=== PATIENT | male | born 1985 | race Caucasian/White ===

== ENCOUNTER 2023-09-07 17:10 | Emergency (ER) | payer OTHER, SELFPAY ==
[2023-09-07 17:37] VITALS: BP 121/87; PULSE 92; RESP 16; TEMP 36.6; O2SAT 98
[2023-09-07 17:58] VITALS: BP 121/87; PULSE 92; RESP 16; TEMP 36.6; O2SAT 98
--- NOTE | 2023-09-07 18:08 | ED.GENADULT ---
HPI - General Adult General Chief complaint: Upper Respiratory Infection Stated complaint: Right Ear Problem Source: patient, RN notes reviewed and old records reviewed Mode of arrival: ambulatory Limitations: no limitations History of Present Illness HPI narrative: 38-year-old male patient presents to [facility] with complaints of right ear being clogged. Patient states can not hear out of the ear. Patient states feels he pushed wax and ear were you trying to use a Q-tip. Patient denies pain or pressure in ear Related Data Home Medications Medication Instructions Recorded Confirmed buprenorphine 8 mg-naloxone 2 mg 1 film sublingual DAILY 09/07/23 09/07/23 sublingual film dextroamphetamine-amphetamine ER 30 mg PO DAILY 09/07/23 09/07/23 30 mg 24hr capsule,extend release diazepam 2 mg tablet 2 mg PO QID 09/07/23 09/07/23 doxepin 100 mg capsule 100 mg PO DAILY 09/07/23 09/07/23 gabapentin 600 mg tablet 600 mg PO QID 09/07/23 09/07/23 guanfacine 2 mg tablet 2 mg PO DAILY 09/07/23 09/07/23 paliperidone palmitate 234 mg/1.5 mg IM 09/07/23 mL intramuscular syringe (Invega Sustenna) Allergies Allergy/AdvReac Type Severity Reaction Status Date / Time mushroom Allergy Gastrointestinal Verified 09/07/23 17:43 Upset nut - unspecified Allergy Gastrointestinal Verified 09/07/23 17:42 Upset onion Allergy Gastrointestinal Verified 09/07/23 17:42 Upset Review of Systems Constitutional: Constitutional: Reports no additional constitutional complaints, Denies body ache(s), Denies chills, Denies fatigue, Denies fever(s) and Denies headache(s) Eyes: Eyes: Reports no additional eye complaints and Denies blurry vision ENT: Reports system reviewed and no additional complaints, except as documented, Denies vertigo, Denies dizziness, Denies ear discharge, Denies otalgia, Denies facial pain, Denies headache(s), Denies nasal congestion, Denies nasal discharge, Denies sinus pain, Denies sinus pressure, Denies sore throat and Reports other ( decreased hearing in right ear) Cardiovascular: Cardiovascular: Reports no additional cardiovascular complaints, Denies chest pain, Denies chest pain at rest, Denies rapid heart rate and Denies dyspnea Respiratory: Respiratory: Reports no additional respiratory complaints, Denies chest congestion, Denies cough, Denies pain on inspiration, Denies pain with cough and Denies dyspnea Gastrointestinal: Gastrointestinal: Denies abdominal pain, Denies diarrhea, Denies nausea and Denies vomiting Integumentary/Breasts: Skin/Breast: Denies rash Neurologic: Reports system reviewed and no additional complaints, except as documented, Denies vertigo, Denies dizziness and Denies headache(s) Endocrine: Endocrine: Denies fatigue PMFSH Comments At the time of my signature, I reviewed and agree with the nursing past medical, surgical, social, and family history. There is no relevant family history pertinent to the patient complaint. Exam Const: General: cooperative, healthy appearing, no acute distress and well nourished Nutritional Appearance: well nourished Orientation/consciousness: patient oriented x3 Limitations: no limitations HENMT: Head: normal to inspection and normocephalic Ears: external ears normal, TM's normal bilaterally, mastoids normal and Abnormal EAC present cerumen impaction bilateral Face/Nose/Sinus: normal facial exam Face and sinus: normal facial exam Mouth: Yes Normal oral and palatal mucosa present, Yes oropharynx normal and Yes moist mucous membranes Throat: tonsils normal, uvula midline and no uvular edema Eyes: General: appearance normal, both eyes and all related structures Sclera: sclerae normal Pupils: Equal, round and reactive pupils present Resp: Effort & Inspection: normal respiratory effort, able to speak in complete sentences, no audible wheezes, no cough, no respiratory distress and no retractions Auscultation: clear to auscultation bilaterally, no cr
== END 2023-09-07 18:20 | disposition home or self-care (01) ==
PROVIDERS: Emergency Provider Registered Nurse; PCP Internal Medicine
DX: H61.23 Impacted cerumen, bilateral (principal)
CPT/HCPCS: 69209; 99212; G0463

== ENCOUNTER 2023-12-06 14:34 | Emergency (ER) | payer OTHER, SELFPAY ==
[2023-12-06 14:44] VITALS: BP 131/81; PULSE 90; RESP 20; TEMP 36.8; O2SAT 98
--- NOTE | 2023-12-06 15:36 | ED.WOUNDLAC ---
HPI - Wound/Laceration General Chief Complaint: Wound/Laceration Stated Complaint: Left Foot Skin Sore Time Seen by Provider: 12/06/23 15:26 Source: patient, RN notes reviewed and old records reviewed Mode of arrival: ambulatory Limitations: no limitations History of Present Illness HPI narrative: 38 year old male who [facility] with complaints of red swollen area to the dorsal apect of his left foot where his shoe rubbed his foot which started about 4 days ago. He reports that he had a blister area and he scratched it ad since then he has had increased redness and swelling to the top of his left foot for the past 2-3 days.. Patient reports that he has been putting some triple antibiotic ointment to area where blister was with no drainage noted. Patient has long unkept toenails states he is unable to trim them. Onset (ago): day(s) (4) Extremity Location: Left: foot (dorsal aspect mid upper foot) Treatments prior to arrival: other (triple antibiotic ointment) Related Data Home Medications Medication Instructions Recorded Confirmed buprenorphine 8 mg-naloxone 2 mg 1 film sublingual TID 09/07/23 12/06/23 sublingual film dextroamphetamine-amphetamine ER 30 mg PO DAILY 09/07/23 12/06/23 30 mg 24hr capsule,extend release diazepam 2 mg tablet 2 mg PO TID 09/07/23 12/06/23 doxepin 100 mg capsule 100 mg PO DAILY 09/07/23 12/06/23 gabapentin 600 mg tablet 600 mg PO QID 09/07/23 12/06/23 guanfacine 2 mg tablet 2 mg PO DAILY 09/07/23 12/06/23 paliperidone palmitate 234 mg/1.5 234 mg IM MONTHLY 09/07/23 12/06/23 mL intramuscular syringe (Invega Sustenna) doxepin 25 mg capsule 25 mg PO BID 12/06/23 12/06/23 Allergies Allergy/AdvReac Type Severity Reaction Status Date / Time mushroom AdvReac Intermediate Gastrointestinal Verified 12/06/23 15:15 Upset nut - unspecified AdvReac Intermediate Gastrointestinal Verified 12/06/23 15:15 Upset onion AdvReac Intermediate Gastrointestinal Verified 12/06/23 15:15 Upset Review of Systems Review of Systems: CONSTITUTIONAL: Denies fever, chills, or sweats. CARDIOVASCULAR: Denies chest pain, palpitations, or edema. RESPIRATORY: Denies cough or dyspnea. GASTROINTESTINAL: Denies abdominal pain, nausea, vomiting SKIN: Reports redness and swelling to the dorsal aspect of his left foot after his shoe rubbed on his foot.. Denies purulent drainage, vesicles, bullae, numbness, pain beyond proportion MUSCULOSKELETAL: Denies myalgia. 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 There is no relevant family history pertinent to the presenting complaint Exam Narrative: GENERAL: Well-appearing, well-nourished, and in no acute distress. HEAD: Normocephalic, atraumatic. EYES: PERRLA and EOMI. ENT: Nares clear, no rhinorrhea or epistaxis. Mucous membranes moist. NECK: Supple.no lymphadenopathy CHEST: Clear to auscultation. No respiratory distress. SAO2 98% on room air HEART: Regular rate and rhythm. N
== END 2023-12-06 16:05 | disposition home or self-care (01) ==
PROVIDERS: Emergency Provider Registered Nurse; PCP Internal Medicine
DX: S91.302A Unspecified open wound, left foot, initial encounter (principal); L03.116 Cellulitis of left lower limb; X58.XXXA Exposure to other specified factors, initial encounter; F90.9 Attention-deficit hyperactivity disorder, unspecified type; F41.9 Anxiety disorder, unspecified; F32.A Depression, unspecified; I10 Essential (primary) hypertension
CPT/HCPCS: 99213; G0463